=== PATIENT | male | born 1985 | race Caucasian/White ===

== ENCOUNTER 2017-05-18 19:02 | Emergency (ER) | payer SELFPAY ==
[~2017-05-18] VITALS: Ht 167.6 cm; Wt 72.0 kg
[2017-05-18 19:08] VITALS: BP 127/69
== END 2017-05-19 01:25 | disposition left against medical advice (07) ==
LOC: ER 19:28
DX: R10.9 Unspecified abdominal pain (principal); R30.0 Dysuria; Z53.21 Procedure and treatment not carried out due to patient leaving prior to being seen by health care provider